=== PATIENT | female | born 1950 | race Caucasian/White ===

== ENCOUNTER 2017-05-07 09:49 | Emergency (ER) | payer OTHER ==
[~2017-05-07] VITALS: Ht 157.5 cm; Wt 85.0 kg
[2017-05-07 09:52] VITALS: Ht 157.5 cm; Wt 85.0 kg
[2017-05-07] MEDS ORDERED: IBUPROFEN 800 MG TAB PO ONE (10:30)
[2017-05-07] MEDS ORDERED: IBUP800T25 PO (10:32)
[2017-05-07] MEDS ORDERED: METH-70 PO (10:32)
[2017-05-07] MEDS ORDERED: HYDR-902 PO (10:32)
[2017-05-07] MEDS: HYDROCODONE/APAP (10/325) TAB PO ONE ×2 (10:34→10:42)
--- NOTE | 2017-05-07 10:38 | ERD ---
ER Documentation Chief Complaint Date/Time DATE: 05/07/17 TIME: 10:33 Chief Complaint Complains of right leg and knee pain HPI 66-year-old female who complains of right knee pain and thigh pain. The patient states that 2 days ago she is having pain in her right buttocks that was radiating down her right leg. She was trying to walk gingerly and she said her left leg stumbled so she twisted the right leg trying to compensate. He complains of pain in the right knee there is no fall or trauma she says she can ambulate but is sore. No swelling no calf swelling no shortness of breath or chest pain. She says the pain in her buttocks is now gone. He complains of pain in the right lateral thigh and around the knee. Pain is nonradiating and is described as sharp and worse with walking better with rest ROS All systems reviewed and are negative except as per history of present illness. Medications Home Meds Active Scripts Hydrocodone/Acetaminophen (Thomson 10-325 Tablet) 1 Each Tablet, 1 TAB PO Q6H Y for PAIN, #20 TAB Prov:CORINNEOSMICHELLESTOLOS A. DO 05/07/17 Methocarbamol* (Robaxin*) 750 Mg Tablet, 750 MG PO TID, #30 TAB Prov:LEKKOSAPOSTOLOS A. DO 05/07/17 Ibuprofen* (Motrin*) 800 Mg Tab, 800 MG PO Q6H Y for PAIN AND OR ELEVATED TEMP, #30 TAB Prov:LEKKOS,APOSTOLOS A. DO 05/07/17 Allergies Allergies: Coded Allergies: No Known Allergy (Unverified , 05/07/17) PMhx/Soc History of Surgery: Yes (hysterectomy) Anesthesia Reaction: No Hx Neurological Disorder: No Hx Respiratory Disorders: No Hx Cardiac Disorders: No Hx Psychiatric Problems: No Hx Miscellaneous Medical Probl: No Hx Alcohol Use: No Hx Substance Use: No Hx Tobacco Use: No FmHx Family History: No coronary disease Physical Exam Vitals Vital Signs Date Time Temp Pulse Resp B/P Pulse Ox O2 Delivery O2 Flow Rate FiO2 05/07/17 09:52 98.0 76 20 125/62 100 Physical Exam Const: Well-developed, well-nourished Head: Atraumatic, normocephalic Eyes: Normal Conjunctiva, PERRLA, EOMI, normal sclera, no nystagmus ENT: Normal External Ears, Nose and Mouth, moist mucus membranes. Neck: Full range of motion. No meningismus, no lymphadenopathy. Resp: Clear to auscultation bilaterally, no wheezing, rhonchi, rales Cardio: Regular rate and rhythm, no murmurs, S1 S2 present Abd: Soft, non tender x 4, non distended. Normal bowel sounds, no guarding or rebound, no pulsitile abdominal masses or bruits Skin: No petechiae or rashes, no ecchymosis , no maculopapular rash Back: No midline or flank tenderness Ext: No cyanosis, or edema, FROM x 4, normal inspection, neurovascularly intact x 4, some pain to the right knee with range of motion there is no ligamentous laxity. No swelling no cords negative Homans sign neurovascularly intact. No pain in the right low back Neur: Awake and alert, STR 5/5 x 4, sensation intact x 4, no focal findings, cerebellum intact Psych: Normal Mood and Affect Results 24 hrs Current Medications Medications (Trade) Dose Ordered Sig/Jacques Route PRN Reason Start Time Stop Time Status Last Admin Dose Admin Ibuprofen (Motrin) 800 mg ONCE ONCE PO 05/07/17 10:30 05/07/17 10:31 DC Acetaminophen/ Hydrocodone Bitart (Thomson (10/325)) 1 tab ONCE ONCE PO 05/07/17 10:30 05/07/17 10:31 DC Procedures/MDM Patient was treated with some oral medications for pain here Patient likely has sciatica. Told her conservative care will discharge home follow Departure Diagnosis: Primary Impression: Knee sprain Encounter type: initial encounter Involved ligament of knee: unspecified ligament Laterality: right Qualified Code: S83.91XA - Sprain of right knee, unspecified ligament, initial encounter Additional Impression: Sciatica Laterality: right Qualified Code: M54.31 - Sciatica of right side Condition: Stable Patient Instructions: Knee Sprain, Back Pain W/ Sciatica MARCO A JIMENEZ DO May 07, 2017 10:38
== END 2017-05-07 11:03 | disposition home or self-care (01) ==
LOC: FTE 09:49
DX: S83.91XA Sprain of unspecified site of right knee, initial encounter (principal); X50.9XXA Other and unspecified overexertion or strenuous movements or postures, initial encounter; Y92.9 Unspecified place or not applicable
CPT/HCPCS: 99284